=== PATIENT | male | born 1945 | race Caucasian/White ===

== ENCOUNTER 2017-07-10 08:50 | Emergency (ER) | payer MEDICARE, SELFPAY | END 2017-07-10 09:40 | disposition home or self-care (01) | LOC: ER1 08:50 | DX: Z48.817 Encounter for surgical aftercare following surgery on the skin and subcutaneous tissue (principal); Z88.5 Allergy status to narcotic agent | CPT/HCPCS: 99282 ==

== ENCOUNTER 2021-04-19 10:38 | Emergency (ER) | payer MEDICARE, OTHER ==
[~2021-04-19 10:38] MED LIST: BACTROBAN OINT22 GM EXT; CYCLOBENZAPRINE10 MG PO; ELIQUIS5 MG PO; KEFLEX CAP 500500 MG PO; PERCOCET 10-321 EACH PO
[2021-04-19] MEDS ORDERED: AUGMENTIN 875-1 EACH PO (14:34)
== END 2021-04-19 15:20 | disposition home or self-care (01) ==
LOC: ER1 10:38
DX: S90.852A Superficial foreign body, left foot, initial encounter (principal); Z79.899 Other long term (current) drug therapy; Z88.8 Allergy status to other drugs, medicaments and biological substances; W22.8XXA Striking against or struck by other objects, initial encounter; Y92.009 Unspecified place in unspecified non-institutional (private) residence as the place of occurrence of the external cause
CPT/HCPCS: 10120; 73630; 99283

== ENCOUNTER → 2021-04-26 | Outpatient (CLI) | payer MEDICARE, SELFPAY ==
[~2021-04-26] MED LIST changes: +AUGMENTIN 875-1 EACH PO
== END ==
LOC: RT 09:53
DX: Z01.810 Encounter for preprocedural cardiovascular examination (principal); Z01.812 Encounter for preprocedural laboratory examination
CPT/HCPCS: 93005

== ENCOUNTER → 2021-05-10 | Outpatient (CLI) | payer MEDICARE | LOC: CT 08:30 → US 08:30 → CT 10:30 | DX: R10.13 Epigastric pain (principal); K42.9 Umbilical hernia without obstruction or gangrene; R11.0 Nausea; K76.0 Fatty (change of) liver, not elsewhere classified; R59.0 Localized enlarged lymph nodes | CPT/HCPCS: 36415; 74160; 76705; 82565; 84520; Q9967 ==

== ENCOUNTER 2021-07-17 18:41 | Emergency (ER) | payer MEDICARE ==
[2021-07-17 19:56] LABS: HEMOGLOBIN 15.8 gm/dl (14.0-17.5); RED BLOOD COUNT 4.57 M/UL (4.20-5.50)
[2021-07-17 20:08] LABS: BUN/CREATININE RATIO 17 (0-10)
== END 2021-07-17 21:51 | disposition home or self-care (01) ==
LOC: ER1 18:41
PROVIDERS: Physician Assistant
DX: S39.91XA Unspecified injury of abdomen, initial encounter (principal); S29.9XXA Unspecified injury of thorax, initial encounter; Z79.82 Long term (current) use of aspirin; Z88.8 Allergy status to other drugs, medicaments and biological substances; W17.89XA Other fall from one level to another, initial encounter
CPT/HCPCS: 71260; 80053; 81001; 85025; 96374; 99284; J2270; Q9967

== ENCOUNTER 2022-05-03 09:49 | Emergency (ER) | payer MEDICARE ==
[2022-05-03 10:51] LABS: HEMOGLOBIN 15.9 gm/dl (14.0-17.5); RED BLOOD COUNT 4.66 M/UL (4.20-5.50); WHITE BLOOD COUNT 4.5 K/UL (4.5-11.0)
[2022-05-03 11:43] LABS: BUN/CREATININE RATIO 14 (0-10)
== END 2022-05-03 13:33 | disposition home or self-care (01) ==
LOC: ER1 09:49
PROVIDERS: Physician Assistant
DX: R20.2 Paresthesia of skin (principal); F10.10 Alcohol abuse, uncomplicated; Z88.8 Allergy status to other drugs, medicaments and biological substances
CPT/HCPCS: 70450; 71045; 80053; 82550; 82553; 83605; 84484; 85025; 85379; 93005; 99284

== ENCOUNTER → 2022-05-04 | Outpatient (CLI) | payer BC | LOC: KOH-I 08:00 | DX: R10.13 Epigastric pain (principal); R16.1 Splenomegaly, not elsewhere classified; I71.9 Aortic aneurysm of unspecified site, without rupture; N13.30 Unspecified hydronephrosis | CPT/HCPCS: 76700 ==